=== PATIENT | female | born 1950 | race Hispanic/Latino ===

== ENCOUNTER → 2019-04-16 | Outpatient (CLI) | payer MEDICARE ==
[~2019-04-16] MED LIST: DIATRIZOATE MEGL/DIATRIZOA SOD 30 ML BTL PO ONE; IOPAMIDOL 370 MG/ML 200 ML INFUS..BTL INJ ONE; SODIUM CHLORIDE 0.9% 500ML 500 ML ONE; SODIUM CHLORIDE 0.9% 50ML 50 ML ONE
[2019-04-16 09:00] LABS: CREATININE, SERUM 0.96 mg/dL (0.57-1.11)
--- NOTE | 2019-04-16 10:37 | Diagnostic Imaging Report ---
EXAM: CT Abdomen and Pelvis WITH intravenous contrast INDICATION: Diverticulitis COMPARISON: None. TECHNIQUE: Abdomen and pelvis were scanned utilizing a multidetector helical scanner from the lung base to the pubic symphysis after administration of IV contrast. Coronal and sagittal reformations were obtained. Routine protocol was performed. Scan was performed during portal venous phase. IV CONTRAST: 100mL of Isovue 370 ORAL CONTRAST: Gastrografin RADIATION DOSE: Total DLP: 336.6 mGy*cm Dose modulation, iterative reconstruction, and/or weight based adjustment of the mA/kV was utilized to reduce the radiation dose to as low as reasonably achievable. FINDINGS: LOWER THORAX: Normal. HEPATOBILIARY: Mild diffuse hepatic steatosis. No focal liver lesion. No biliary ductal dilation. Status post cholecystectomy. SPLEEN: No splenomegaly. PANCREAS: No focal masses or ductal dilatation. ADRENALS: No adrenal nodules. KIDNEYS/URETERS: No hydronephrosis, stones, or solid mass lesions. PELVIC ORGANS/BLADDER: Unremarkable. PERITONEUM / RETROPERITONEUM: No free air or fluid. LYMPH NODES: No lymphadenopathy. VESSELS: Mild scattered atherosclerotic calcifications of the nonaneurysmal abdominal aorta and major branches. GI TRACT: Sigmoid and distal descending colon diverticulosis. No CT evidence of diverticulitis. No abnormal bowel thickening. No bowel obstruction. Normal appendix. BONES AND SOFT TISSUES: No acute osseous injury. No suspicious lytic or blastic lesions. IMPRESSION: Diverticulosis without CT evidence of diverticulitis. Mild diffuse hepatic steatosis. Signed by: Alyssa Miranda MD on 04/16/2019 10:34 AM
== END ==
LOC: CT 08:10
PROVIDERS: ATTEND Internal Medicine
DX: K57.92 Diverticulitis of intestine, part unspecified, without perforation or abscess without bleeding (principal)
CPT/HCPCS: 36415; 74177; 82565; 84520; 96360; J7040; Q9967

== ENCOUNTER → 2019-07-16 | Outpatient (CLI) | payer MEDICARE ==
--- NOTE | 2019-07-16 14:02 | Diagnostic Imaging Report ---
TECHNIQUE: Magnetic resonance imaging of the RIGHT KNEE was performed WITHOUT injected contrast. HISTORY: Right knee pain COMPARISON: None available. FINDINGS: LIGAMENTS AND TENDONS: ACL: Intact PCL: Intact Collateral ligaments: Intact Iliotibial band: Unremarkable Popliteal tendon: Intact Extensor mechanism: Intact JOINT: Menisci: Medial: Complex radial tear posterior horn results in extrusion Lateral: Intact Articular Cartilage: Medial Compartment: Partial-thickness cartilage loss Lateral Compartment: No focal defect. Patellofemoral Compartment: Diffuse full-thickness cartilage loss Joint Fluid: Moderate joint effusion BONE: No focal or infiltrative bone marrow replacing abnormality. No acute fracture. SOFT TISSUES: Otherwise, unremarkable. IMPRESSION: Medial meniscus complex radial tear posterior horn results in extrusion and partial thickness cartilage loss. Patellofemoral compartment full-thickness cartilage loss. Signed by: Dr. Addison Munroe M.D. on 07/16/2019 1:59 PM
== END ==
LOC: MRI 12:55
PROVIDERS: ATTEND Specialist
DX: S83.221A Peripheral tear of medial meniscus, current injury, right knee, initial encounter (principal)

== ENCOUNTER → 2020-12-11 | Outpatient (CLI) | payer MEDICARE ==
[~2020-12-11] MED LIST changes: -DIATRIZOATE MEGL/DIATRIZOA SOD 30 ML BTL PO ONE; +METOPROLOL TARTRATE 25 MG TAB ONE; +METOPROLOL TARTRATE INJ 1 MG/ML VIAL ONE; +NITROGLYCERIN 0.4 MG SUBL ONE; +SODIUM CHLORIDE 0.9% 100 ML ONE; -SODIUM CHLORIDE 0.9% 500ML 500 ML ONE; -SODIUM CHLORIDE 0.9% 50ML 50 ML ONE
== END ==
LOC: CT 07:50
PROVIDERS: ATTEND Internal Medicine Cardiovascular Disease
DX: R07.9 Chest pain, unspecified (principal)
CPT/HCPCS: 75574; J7050; Q9967

== ENCOUNTER 2023-09-04 22:59 | Inpatient (IN) | payer MEDICARE, OTHER ==
[~2023-09-04] VITALS: Ht 154.9 cm; Wt 68.0 kg
[2023-09-04 23:22] LABS: BASOPHILS # (AUTO) 0.1 (0.0-0.1); BASOPHILS % 0.5 % (0.0-1.0); EOSINOPHILS # (AUTO) 0.1 (0.0-0.4); EOSINOPHILS % 0.8 % (0.0-6.0); HEMATOCRIT 36.6 % (34.2-44.1); HEMOGLOBIN 12.6 g/dL (12.0-16.0); LYMPHOCYTES # (AUTO) 7.4 (1.0-3.2); LYMPHOCYTES % 44.5 % (18.0-39.1); MEAN CORPUSCULAR HEMOGLOBIN 30.6 pg (28-32); MEAN CORPUSCULAR HGB CONC 34.4 g/dL (31-35); MEAN CORPUSCULAR VOLUME 88.8 fL (81-99); MONOCYTES # (AUTO) 0.9 (0.2-0.8); MONOCYTES % 5.5 % (4.4-11.3); NEUTROPHILS % 48.3 % (38.7-80.0); PLATELET COUNT 395 x10e3/uL (140-360); RED BLOOD COUNT 4.12 x10e6/uL (3.6-5.1); WHITE BLOOD COUNT 16.53 x10e3/uL (4.8-10.8)
[2023-09-04 23:40] LABS: ANION GAP 18.8 mmol/L (8-16); BILIRUBIN,TOTAL 0.5 mg/dL (0.2-1.2); CALCIUM 9.9 mg/dL (8.4-10.2); CREATININE, SERUM 0.91 mg/dL (0.57-1.11); POTASSIUM 3.8 mmol/L (3.5-5.1); TOTAL PROTEIN 8.4 g/dL (6.5-8.1)
[2023-09-04 23:46] LABS: TROPONIN I 0.013 ng/mL (0-0.300)
[2023-09-04 23:58] LABS: ALBUMIN 4.5 g/dL (3.5-5.0); ALBUMIN/GLOBULIN RATIO 1.1 (0.8-2.0)
[2023-09-05] VITALS (12 sets, daily range): BP systolic 101–147; BP diastolic 58–76; PULSE 52–99; RESP 17–20; TEMP 97.7–98.8; O2SAT 96–100
[2023-09-05] MEDS ORDERED: ONDANSETRON HCL INJ 2MG/ML 2ML 2 MG/ML VIAL IV PRN ×2 (00:30→09:00)
[2023-09-05] MEDS ORDERED: Morphine 4mg INJECTION 4 MG/ML INJ IV PRN (00:30)
[2023-09-05 00:33] LABS: BILIRUBIN,URINE NEGATIVE (NEGATIVE); CLARITY,URINE CLEAR (CLEAR); COLOR,URINE YELLOW (YELLOW); GLUCOSE, URINE NEGATIVE (NEGATIVE); KETONES,URINE NEGATIVE (NEGATIVE); LEUKOCYTE ESTERASE ,URINE NEGATIVE (NEGATIVE); NITRITE,URINE NEGATIVE (NEGATIVE); PH,URINE 5.5 (5 - 7); PROTEIN,URINE DIPSTICK 2+ (NEGATIVE); URINE UROBILINOGEN 0.2 mg/dL (0.2 - 1)
[2023-09-05 01:38] LABS: BACTERIA,URINE FEW /HPF; EPITHELIAL CELLS,URINE MANY /LPF
[2023-09-05] MEDS: SODIUM CHLORIDE 0.9% 1000ML 1,000 ML IV SCH (01:51)
[2023-09-05] MEDS ORDERED: EZETIMIBE10 MG PO (02:08)
[2023-09-05] MEDS ORDERED: METOPROLOL SUCC25 MG PO (02:14)
[2023-09-05] MEDS ORDERED: LISINOPRIL-HCT1 EACH PO (02:14)
[2023-09-05] MEDS ORDERED: AMLODIPINE BESYL5 MG PO (02:14)
[2023-09-05] MEDS ORDERED: GABAPENTIN300 MG PO (02:14)
[2023-09-05] MEDS ORDERED: METFORMIN HCL500 M1 PO (02:14)
[2023-09-05] MEDS ORDERED: ATORVASTATIN CA80 MG PO (02:14)
[2023-09-05 06:15] LABS: TROPONIN I 0.004 ng/mL (0-0.300)
[2023-09-05] MEDS ORDERED: DEXTROSE 50% SYRINGE 50 ML IV PRN (09:00)
[2023-09-05] MEDS ORDERED: HYDRALAZINE HCL 20 MG/ML VIAL IV PRN (09:00)
[2023-09-05 09:31] LABS: MAGNESIUM 1.9 MG/DL (1.3-2.1)
[2023-09-05 09:48] LABS: THYROID STIMULATING HORMONE 1.884 uIU/mL (0.350-4.940)
[2023-09-05] MEDS ORDERED: AMIODARONE HCL 200 MG TAB PO ONE (10:15)
[2023-09-05 10:41] LABS: PHOSPHORUS 3.7 MG/DL (2.3-4.7)
[2023-09-05] MEDS ORDERED: IOPAMIDOL 370 MG/ML 100 ML INFUS..BTL INJ ONE (10:52)
[2023-09-05] MEDS: GABAPENTIN 300 MG CAP PO SCH (11:10)
[2023-09-05] MEDS: ENOXAPARIN SOD INJ 60 MG/0.6 ML SYR SC SCH (11:10)
[2023-09-05] MEDS: EZETIMIBE 10 MG TAB PO SCH (11:10)
[2023-09-05] MEDS: AMLODIPINE BESYLATE 5 MG TAB PO SCH (11:11)
[2023-09-05] MEDS: METOPROLOL SUCCINATE 25 MG TAB XL PO SCH (11:11)
[2023-09-05] MEDS: INSULIN LISPRO 100 UNIT/1 ML 3ML VIAL SQ SCH (11:30)
[2023-09-05 15:37] LABS: TROPONIN I 0.001 ng/mL (0-0.300)
[2023-09-05] MEDS ORDERED: APIXABAN 2.5 MG TABLET PO SCH (17:00)
[2023-09-05] MEDS: ATROPINE SULFATE 1 MG/ML VIAL IV PRN (18:58)
[2023-09-05] MEDS: ATORVASTATIN 40 MG TAB PO SCH (20:48)
[2023-09-06] VITALS (9 sets, daily range): BP systolic 96–135; BP diastolic 65–77; PULSE 59–80; RESP 17–20; TEMP 97.7–98.5; O2SAT 90–99
[2023-09-06 05:33] LABS: BASOPHILS # (AUTO) 0.1 (0.0-0.1); BASOPHILS % 0.9 % (0.0-1.0); EOSINOPHILS # (AUTO) 0.1 (0.0-0.4); EOSINOPHILS % 1.3 % (0.0-6.0); HEMATOCRIT 35.3 % (34.2-44.1); HEMOGLOBIN 11.9 g/dL (12.0-16.0); LYMPHOCYTES # (AUTO) 4.2 (1.0-3.2); LYMPHOCYTES % 43.5 % (18.0-39.1); MEAN CORPUSCULAR HEMOGLOBIN 30.2 pg (28-32); MEAN CORPUSCULAR HGB CONC 33.7 g/dL (31-35); MEAN CORPUSCULAR VOLUME 89.6 fL (81-99); MONOCYTES # (AUTO) 0.6 (0.2-0.8); MONOCYTES % 6.7 % (4.4-11.3); NEUTROPHILS # (AUTO) 4.6 (2.1-6.9); NEUTROPHILS % 47.4 % (38.7-80.0); PLATELET COUNT 372 x10e3/uL (140-360); RED BLOOD COUNT 3.94 x10e6/uL (3.6-5.1); RED CELL DISTRIBUTION WIDTH 14.6 % (11.7-14.4)
[2023-09-06 06:08] LABS: ALBUMIN 3.6 g/dL (3.5-5.0); ALBUMIN/GLOBULIN RATIO 1.1 (0.8-2.0); ANION GAP 15.9 mmol/L (8-16); BILIRUBIN,TOTAL 0.6 mg/dL (0.2-1.2); CALCIUM 9.2 mg/dL (8.4-10.2); CREATININE, SERUM 1.31 mg/dL (0.57-1.11); POTASSIUM 3.9 mmol/L (3.5-5.1); TOTAL PROTEIN 6.9 g/dL (6.5-8.1)
[2023-09-06] MEDS: SODIUM CHLORIDE 0.9% 250ML 250 ML ONE (09:50)
[2023-09-06] MEDS ORDERED: ONDANSETRON HCL 4 MG ORAL DISINTEGRATING TAB PO PRN ×2 (10:30→16:30)
[2023-09-06] MEDS: AMLODIPINE BESYLATE 5 MG TAB PO SCH (16:19)
[2023-09-07] VITALS (10 sets, daily range): BP systolic 113–156; BP diastolic 65–87; PULSE 63–103; RESP 17–21; TEMP 97.8–98.6; O2SAT 93–100
[2023-09-07 11:19] LABS: INR 0.97; PROTHROMBIN TIME 13.6 seconds (11.9-14.5)
[2023-09-08] VITALS (9 sets, daily range): BP systolic 126–153; BP diastolic 68–80; PULSE 69–82; RESP 17–20; TEMP 97.3–98.6; O2SAT 95–99
[2023-09-08] MEDS: Vancomycin IV 1 GM VIAL ONE ×2 (07:39→08:00)
[2023-09-08] MEDS: LIDOCAINE HCL 2% LOCAL 20 ML VIAL ONE (07:39)
[2023-09-08] MEDS: GENTAMICIN SULFATE 40 MG/ML 2 ML VIAL ONE (07:39)
[2023-09-08] MEDS: SODIUM CHLORIDE 0.9% 1000ML 2,000 ML ONE (07:40)
[2023-09-08] MEDS: SODIUM CHLORIDE 0.9% 250ML 250 ML ONE (07:40)
[2023-09-08] MEDS: IOPAMIDOL 610MG/1ML 300 MG/ML VIAL IV ONE (07:40)
[2023-09-08] MEDS: SODIUM CHLORIDE 0.9% 500ML 500 ML ONE (07:40)
[2023-09-08] MEDS: MIDAZOLAM HCL 2 MG/2 ML VIAL ONE ×2 (08:00→09:46)
[2023-09-08] MEDS: SODIUM CHLORIDE 0.9% 1000ML 1,000 ML ONE (08:00)
[2023-09-08] MEDS: FENTANYL CITRATE/PF 100MCG/2 ML INJ ONE (08:00)
[2023-09-08] MEDS: ACETAMINOPHEN 325 MG TAB PO PRN (09:44)
[2023-09-08] MEDS: PANTOPRAZOLE SOD 40 MG TABEC PO SCH (12:09)
[2023-09-08] MEDS: HYDROCODONE/APAP 5MG-325MG TAB PO PRN (12:10)
[2023-09-08] MEDS: MINOCYCLINE HCL 50 MG CAP PO SCH (12:10)
[2023-09-09] VITALS: BP 144/70; PULSE 71; RESP 18; TEMP 98; O2SAT 98
[2023-09-09 04:00] VITALS: BP 144/75; PULSE 65; RESP 18; TEMP 98.1; O2SAT 99
[2023-09-09 08:09] VITALS: BP 152/77; PULSE 69; RESP 18; TEMP 98.2; O2SAT 98
[2023-09-09 08:14] VITALS: BP 152/77; PULSE 69; RESP 18; TEMP 98.2; O2SAT 98
[2023-09-09 11:52] VITALS: BP 137/72; PULSE 71; RESP 16; TEMP 98; O2SAT 96
== END 2023-09-09 13:35 | disposition home or self-care (01) | DRG 243 ==
LOC: ER 23:03 → ERHOLD 09-05 00:31 → MED/SURG 09-05 01:11
PROVIDERS: ADMIT Internal Medicine; ATTEND Internal Medicine
PROC: 0JH606Z Insertion of Pacemaker, Dual Chamber into Chest Subcutaneous Tissue and Fascia, Open Approach (ICD-10-PCS; principal; 2023-09-08)
PROC: 02H63JZ Insertion of Pacemaker Lead into Right Atrium, Percutaneous Approach (ICD-10-PCS; 2023-09-08)
PROC: 02HK3JZ Insertion of Pacemaker Lead into Right Ventricle, Percutaneous Approach (ICD-10-PCS; 2023-09-08)
DX: I49.5 Sick sinus syndrome (principal); N39.0 Urinary tract infection, site not specified; E11.22 Type 2 diabetes mellitus with diabetic chronic kidney disease; E11.42 Type 2 diabetes mellitus with diabetic polyneuropathy; I12.9 Hypertensive chronic kidney disease with stage 1 through stage 4 chronic kidney disease, or unspecified chronic kidney disease; K21.9 Gastro-esophageal reflux disease without esophagitis; N18.30 Chronic kidney disease, stage 3 unspecified; R00.2 Palpitations; I48.0 Paroxysmal atrial fibrillation; R06.00 Dyspnea, unspecified; Z11.52 Encounter for screening for COVID-19; I49.3 Ventricular premature depolarization; I25.10 Atherosclerotic heart disease of native coronary artery without angina pectoris; E78.49 Other hyperlipidemia; E66.9 Obesity, unspecified; Z68.28 Body mass index [BMI] 28.0-28.9, adult; Z63.4 Disappearance and death of family member; Z79.84 Long term (current) use of oral hypoglycemic drugs
CPT/HCPCS: 33208; 36415; 71045; 74177; 80053; 81001; 82550; 82948; 83036; 83690; 83735; 83880; 84100; 84443; 84484; 85025; 85610; 93005; 93306; 94799; 99152; 99153; 99284; C1769; J0461; J0690; J0696; J1580; J1650; J2001; J2250; J7030; J7040; J7050; Q9967; U0002